=== PATIENT | female | born 2000 | race African-American/Black ===

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

== ENCOUNTER 2024-05-05 02:06 | Emergency (ER) | payer MEDICAID ==
[~2024-05-05] VITALS: Ht 162.6 cm; Wt 82.0 kg
[2024-05-05 02:21] VITALS: BP 135/84; PULSE 96; RESP 18; TEMP 37.1; O2SAT 100
[2024-05-05] MEDS ORDERED: KETOROLAC 15MG/ML VIAL IV ONE (03:00)
[2024-05-05] MEDS ORDERED: ACETAMINOPHEN 325MG TABLET PO ONE (03:00)
[2024-05-05] MEDS ORDERED: ONDANSETRON 4MG ODT PO ONE (03:00)
[2024-05-05 03:09] LABS: BASOPHILS % 0.5 % (0.0-2.0); EOSINOPHILS % 0.6 % (0.0-5.0); HEMOGLOBIN. 13.6 g/dL (12.0-16.0); LYMPHOCYTES % 35.3 % (20.0-50.0); MEAN CORPUSCULAR HGB CONC 34.1 g/dL (31.0-37.0); MEAN CORPUSCULAR VOLUME 93.7 fL (81.0-99.0); MEAN PLATELET VOLUME 8.3 fl (7.4-10.4); NEUTROPHILS % 55.6 % (40.0-76.0); PLATELET 469 x1000/uL (130-400); RED BLOOD CELL COUNT 4.27 mill/uL (4.2-5.4); WHITE BLOOD COUNT 9.3 x1000/uL (4.5-11.0)
[2024-05-05 03:18] LABS: CHLORIDE 109 mEq/L (98-107); POTASSIUM 4.4 mEq/L (3.5-5.1); SODIUM 142 mEq/L (136-145)
[2024-05-05 03:19] LABS: CALCIUM 9.8 mg/dL (8.7-10.4); CARBON DIOXIDE 23 mEq/L (21-32)
[2024-05-05 03:24] LABS: CREATININE 0.8 mg/dL (0.6-1.0); GLUCOSE 103 mg/dL (70-105); UREA NITROGEN BLOOD 15 mg/dL (9-23)
[2024-05-05 03:59] LABS: HCG SCREEN NEGATIVE
== END 2024-05-05 04:28 | disposition left against medical advice (07) ==
LOC: ER 02:06
DX: R51.9 Headache, unspecified (principal)
CPT/HCPCS: 80048; 84703; 85025; 36415; 99283; Q0162; J1885; Z7610